=== PATIENT | female | born 1965 | race Caucasian/White ===

== ENCOUNTER 2025-04-15 03:36 | Emergency (ER) | payer OTHER, SELFPAY ==
[2025-04-15 03:46] VITALS: BP 107/80
[2025-04-15 04:15] VITALS: BMI 30.9
[2025-04-15 04:18] VITALS: BP 108/74
--- NOTE | 2025-04-15 04:49 | ED.SKININJ ---
HPI-Injury
General
Chief Complaint: Skin Problem
Source: patient
Time Seen by Provider: 04/15/25 04:37
History of Present Illness-Injury
Initial Injury comments:
Pleasant 59-year-old female who presents with a 'spot on the back of her thigh '. She is concerned because she had something similar that 'required emergency surgery 'back in October 2023. Denies fever, chills, nausea or vomiting.
Review of Systems
Review of Systems
Allergies reviewed?: Yes
All Other Systems: ROS reviewed and negative except as documented in HPI and ROS
Constitutional: Reports no symptoms
EENT: Reports no symptoms
Respiratory: Reports no symptoms
Cardiac: Reports no symptoms
ABD/GI: Reports no symptoms
: Reports no symptoms
Musculoskeletal: Reports other (Comedone on the back of her right thigh)
Skin: Reports no symptoms
Neurological: Reports no symptoms
Endocrine: Reports no symptoms
Hematologic/Lymphatic: Reports no symptoms
Psychiatric: Reports no symptoms
Phy Exam
General Physical Exam
General Presentation: well appearing and no apparent distress
ENT Exam
ENT Exam: EOMI
Pulmonary Exam
Pulmonary Exam: no respiratory distress and no cough
Neurological Exam
Neurological Exam: alert and oriented x3
Skin Exam
Skin Exam: normal color, warm/dry and other (Small comedone on the back of the right thigh. No induration. No fluctuance. No drainable abscess)
Psychiatric Exam
Psychiatric Exam: normal mood/affect
Course
Orders/Labs/Results
Orders:
Orders
04/15/25 05:08
Mupirocin [Bactroban 2% Ointment] 1 applic TOPICAL NOW STA
Vital Signs
Initial and Last Documented VS:
Initial Vital Signs
Temp Pulse Resp BP Pulse Ox
98.1 F 79 16 107/80 98
04/15/25 03:46 04/15/25 03:46 04/15/25 03:46 04/15/25 03:46 04/15/25 03:46
Last Documented Vital Signs
Temp Pulse Resp BP Pulse Ox
98.1 F 79 16 108/74 98
04/15/25 03:46 04/15/25 03:46 04/15/25 03:46 04/15/25 04:18 04/15/25 04:20
*Pulse Oximetry
Patient hypoxic: no (Pulse ox 98% on room air)
*Critical Care Note
Total Time (30-74mins, 75-104mins- exclusive of procedures): Not Applicable
Update Note
Update Note:
Patient requested that we drain this. I explained to her that I did not feel that there was anything to drain. She insisted stating the last time she went through '3 months of severe pain '.
Area was prepped in the usual fashion. Using an 11 blade the lesion was unroofed. There was no discharge. Area was cultured. Patient tolerated procedure well. No immediate adverse effects. Patient denied any new pain. There is no bleeding.
ED Attending Note
-
Portions of this chart may have been created with voice recognition software.� Occasional wrong word or��sound alike� substitutions may have occurred due to the inherent limitations of voice recognition software.
Discharge Plan
Departure
Patient Disposition: Home (Routine Discharge)
Date of Disposition: 04/15/25
Time of Disposition: 04:57
Patient with high blood pressure during this ER visit?: No
Condition: Good
Discharge Problem:
Skin rash
Instructions: Skin Rash (DC), Wound Care (DC)
Activity Restrictions/Additional Instructions:
Please use the Bactroban 4 times a day while awake on the affected area
Thank You for choosing [facility].
It was a pleasure meeting you and taking part in your care. We hope for your continued healing and wellness.
Please read discharge instructions in their entirety. However, they are for general education and may not describe your exact diagnosis at discharge. Information on your ER visit and medical conditions were discussed with you along with appropriate
follow up information...
If indicated, please take your medications as instructed and indicated on discharge paperwork.
Please schedule a follow up appointment as directed. Call to schedule an appointment
Please return to the emergency department with ANY change in, persisting, or worsening of symptoms. If any of your symptoms do not improve, or persist, or become more severe within 6-12 hours, please return to the emergency department for further
care.
Please return to the emergency department if you develop a headache, neck pain/stiffness, fever greater than 100.4F, chest pain, shortness of breath, persistent nausea, vomiting, slurred speech, difficulty walking, numbness/tingling, weakness, signs
of infection or any other symptoms that are worrisome to you.
If you have any questions or concerns please do not hesitate to call the Hospital at or E-mail me directly at [email or web address]
Interventions
Interventions:
*Risk Screen - Suicide Last Done: 04/15/25 03:46
*General Assessment Last Done: 04/15/25 03:46
*Neglect/Abuse Screening Last Done: 04/15/25 03:46
*ED- Fall Risk Assessment Last Done: 04/15/25 03:46
*ED COVID-19 Vaccine History Last Done: 04/15/25 04:15
ED-Skin Assessment Last Done: 04/15/25 04:15
Discharge Date and Time
Print Language: AMHARIC
[2025-04-15] MEDS: BACTROBAN 2% OINTMENT 1 APPLIC TOPICAL (05:53)
== END 2025-04-15 05:55 | disposition home or self-care (01) ==
LOC: EMR 03:36
PROVIDERS: EMERGENCY PHYSICIAN Student in an Organized Health Care Education/Training Program; FAMILY PHYSICIAN Family Medicine
DX: R21 Rash and other nonspecific skin eruption (principal)
CPT/HCPCS: 99282; 87070; 87147; 87205